=== PATIENT | female | born 1935 | race Two or more races ===

== ENCOUNTER 2021-12-26 10:31 | Outpatient (REF) | payer MEDICARE, OTHER, SELFPAY ==
[2021-12-26 11:52] LABS: MANUAL DIFF FLAG NO
[2021-12-26 12:00] LABS: Basophils Percent Auto 0.5 % (0-2); Eosinophils Absolute Auto 0.2 X10*3/uL (0.0-0.4); Eosinophils Percent Auto 2.7 % (0-4); Hematocrit 33.3 % (37.0-47.0); Hemoglobin 10.5 g/dl (12.0-16.0); Imm Gran Abs Auto 0.02 X10*3/uL (0.00-0.03); Imm Gran Pct Auto 0.3 % (0.0-0.4); Lymphocytes Absolute Auto 1.4 X10*3/uL (1.2-4.9); Lymphocytes Percent Auto 22.5 % (20-40); Mean Corpuscular HGB Conc 31.5 g/dl (31.0-35.0); Mean Corpuscular Hemoglobin 29.2 pg (27.0-33.0); Mean Corpuscular Volume 92.5 fL (80.0-98.0); Mean Platelet Volume 9.8 fL (9.4-12.3); Monocytes Absolute Auto 0.5 X10*3/uL (0.1-1.2); Monocytes Percent Auto 8.6 % (2-11); Neutrophils Absolute Auto 4.1 x10*3/uL (2.0-8.3); Neutrophils Percent Auto 65.4 % (45-73); Platelet Count 205 X10*3/uL (160-400); Red Cell Distribution Width 12.1 % (11.0-16.0); White Blood Count 6.3 X10*3/uL (4.8-10.8)
[2021-12-26 12:24] LABS: Alanine Aminotransferase 11 U/L (0-31); Albumin Level 4.1 g/dL (3.5-5.0); Alkaline Phosphatase 78 U/L (39-117); Anion Gap 11 (12-20); Aspartate Amino Transferase 19 U/L (5-31); Bilirubin Total 0.5 mg/dL (0.0-1.0); Blood Urea Nitrogen 19 mg/dL (9-16); C Reactive Protein 1.46 mg/dL (< or = 0.50); Calcium 9.7 mg/dL (8.4-10.2); Carbon Dioxide 31 mmol/L (22-29); Chloride 104 mmol/L (96-108); Estimated Glomerular Filt Rate 47; Glucose Random 96 mg/dL (60-115); Sodium 141 mmol/L (135-145); Total Protein 6.9 g/dL (6.5-8.0)
[2021-12-26 13:26] LABS: Appearance Urine CLEAR; Color Urine YELLOW; Glucose Urine UA NEG (NEG); Leukocyte Esterase Urine NEG (NEG); Nitrite Urine NEG (NEG); Specific Gravity - Urine <= 1.005 (1.005-1.025); Urine Blood NEG (NEG); Urine Ketones NEG (NEG); Urine Protein NEG (NEG-TRACE)
== END 2021-12-26 10:32 | disposition home or self-care (01) ==
LOC: HO.LAB 10:31
PROVIDERS: PCP Internal Medicine; Visit Provider Internal Medicine Rheumatology
DX: L95.8 Other vasculitis limited to the skin (principal); M19.90 Unspecified osteoarthritis, unspecified site
CPT/HCPCS: 36415; 80053; 81003; 85025; 86140; 99212

== ENCOUNTER 2022-01-11 10:42 | Outpatient (REF) | payer MEDICARE, OTHER, SELFPAY ==
[2022-01-11 11:07] LABS: MANUAL DIFF FLAG NO
[2022-01-11 11:33] LABS: Basophils Percent Auto 0.4 % (0-2); Eosinophils Absolute Auto 0.2 X10*3/uL (0.0-0.4); Eosinophils Percent Auto 2.9 % (0-4); Hemoglobin 10.4 g/dl (12.0-16.0); Imm Gran Abs Auto 0.02 X10*3/uL (0.00-0.03); Imm Gran Pct Auto 0.4 % (0.0-0.4); Mean Corpuscular HGB Conc 31.5 g/dl (31.0-35.0); Mean Corpuscular Hemoglobin 29.2 pg (27.0-33.0); Mean Corpuscular Volume 92.7 fL (80.0-98.0); Mean Platelet Volume 9.9 fL (9.4-12.3); Monocytes Absolute Auto 0.5 X10*3/uL (0.1-1.2); Monocytes Percent Auto 8.5 % (2-11); Neutrophils Absolute Auto 3.9 x10*3/uL (2.0-8.3); Neutrophils Percent Auto 69.8 % (45-73); Platelet Count 218 X10*3/uL (160-400); Red Blood Count 3.56 X10*6/uL (4.20-5.50); Red Cell Distribution Width 11.9 % (11.0-16.0); White Blood Count 5.5 X10*3/uL (4.8-10.8)
[2022-01-11 12:32] LABS: Vitamin B12 874 pg/mL (200-900)
[2022-01-11 12:34] LABS: Iron 45 mcg/dL (30-160); Percent Iron Saturation 16 % (15-50); Total Iron Binding Capacity 288 mcg/dL (228-428); Unsaturated Iron Binding 243 ug/dL
[2022-01-14 21:01] LABS: Haptoglobin 177 mg/dL (43-212)
== END 2022-01-11 10:43 | disposition home or self-care (01) ==
LOC: HO.LAB 10:42
PROVIDERS: PCP Internal Medicine; Visit Provider Internal Medicine Rheumatology
DX: D64.9 Anemia, unspecified (principal); L95.8 Other vasculitis limited to the skin
CPT/HCPCS: 36415; 82607; 83010; 83540; 85025

== ENCOUNTER 2022-09-05 16:32 | Outpatient (REF) | payer MEDICARE, OTHER, SELFPAY ==
[2022-09-05 18:49] LABS: Influenza A PCR NEGATIVE (Negative); Influenza B PCR NEGATIVE (Negative); Resp Syncy Virus RNA Qual PCR NEGATIVE (Negative); SARS COV2 PCR INHOUSE NEGATIVE (Negative)
== END 2022-09-05 16:33 | disposition home or self-care (01) ==
LOC: HO.LAB 16:32
DX: J02.9 Acute pharyngitis, unspecified (principal); Z20.822 Contact with and (suspected) exposure to COVID-19
CPT/HCPCS: 0241U

== ENCOUNTER 2024-08-01 06:56 | Emergency (ER) | payer MEDICARE, OTHER, SELFPAY ==
--- NOTE | ~2024-08-01 | CT_ITS ---
EXAMINATION: CT HEAD WITHOUT CONTRAST (STROKE PROTOCOL) CLINICAL INFORMATION: Stroke protocol. Right sided weakness. On Coumadin. COMPARISON: None available. TECHNIQUE: Contiguous axial imaging was performed from the skull base to vertex without intravenous administration of contrast. This CT examination was performed using dose optimization techniques as appropriate, variously including the following: *Automated exposure control *Adjustment of mA and/or kV according to patient size (this includes techniques or standardized protocols for targeted exams where dose is matched to indication/reason for exam; i.e. extremities or head) *Use of iterative reconstruction technique DLP: 652 mGy-cm FINDINGS: No intracranial hemorrhage, large infarction, or mass lesion is seen. Anterior left external capsule hypodensity (image 29, series 2). Diffuse, age-appropriate cortical atrophy and chronic bilateral periventricular white matter ischemic change. No extra-axial collection is appreciated. The ventricles are normal in size and configuration without evidence of hydrocephalus. Mild mucosal thickening involving the maxillary sinuses. The mastoid air cells are clear. Mild deviation of the nasal septum toward the right. Left emily bullosa. Occlusion of the left ostiomeatal unit by soft tissue density. Bilateral lens extractions. Cerumen within the right external auditory canal. CT/CT head for stroke IMPRESSION: Anterior left external capsule hypodensity which may represent age indeterminate infarct. This critical result was discussed with LETICIA Guerrero at approximately 7:18 AM on August 01, 2024. It was ascertained that the content and urgency of the report was understood at the time of direct communication. Electronically signed by: Kevin Marie MD 08/01/2024 07:19 AM EDT
--- NOTE | ~2024-08-01 | CT_ITS ---
EXAMINATION: CT angio head neck stroke CLINICAL INFORMATION: Right-sided weakness. COMPARISON: CT head 08/01/2024. TECHNIQUE: Supply Chain Vice President images were obtained. A CT angiogram of the head and neck was performed in the arterial phase after the intravenous administration of 70 mL Omnipaque 350. Pre and delayed postcontrast images of the head were also obtained. 3D images were processed on an independent workstation under concurrent supervision. Arterial stenoses are measured in accordance with NASCET criteria or similar method if applicable. This CT examination was performed using dose optimization techniques as appropriate, including one or more of the following: Automated exposure control, iterative reconstruction, and adjustment of technique factors (mA and/or kVp) according to patient size (this includes techniques or standardized protocols for targeted exams where dose is matched to indication/reason for exam). Fleischner Society criteria for the followup of incidental pulmonary nodules was implemented if appropriate. Total exam dose-length product 1518 mGy-cm FINDINGS: Head: Postcontrast images reveal no abnormal intracranial mass or enhancement. There is no intracranial mass effect or midline shift. Lateral and third ventricles are normal. No hydrocephalus. Again there is a well-defined focus of hypoattenuation at the anterior aspect of the left lentiform nucleus. Kathleen-white matter differentiation is otherwise preserved. The calvarium and skull base are intact. Mastoid air cells and middle ear cavities are well aerated. Mild paranasal sinus disease. CT angiogram neck: Scattered atheromatous calcification involves the aortic arch apex. Origins of the major aortic branches are patent. Common carotid arteries are normal. Partially calcified atheromatous plaque involves both carotid bifurcations. No stenosis of the extracranial internal carotid arteries. The cervical segments of the vertebral arteries as well as their origins are patent. CT angiogram head: Atheromatous calcification involves the cavernous segments of both internal carotid arteries. Intracranial internal carotid arteries are widely patent. Intradural vertebral artery segments and basilar artery are patent. There is occlusive thrombus within the distal M1 segment of the left middle cerebral artery. There is reconstitution of contrast filling the distal branches of the left middle cerebral artery complex. Anterior, middle, and posterior cerebral or complexes are otherwise unremarkable. Other: Soft tissues of the neck including the thyroid gland are normal. No pathologically enlarged cervical lymph nodes. No mediastinal or axillary adenopathy is visualized within the [id number] this examination. There is mild interlobular septal thickening visualized at the apices of both lungs. No acute osseous finding. CT/CT angio head neck stroke IMPRESSION: There is occlusive thrombus within the distal M1 segment of the left middle cerebral artery. There is reconstitution of contrast filling the distal branches of the left middle cerebral artery complex. Otherwise no stenosis of the cervical carotid or vertebral arteries. No intracranial large vessel occlusion. No abnormal intracranial mass or enhancement. This critical result was discussed with Jolynn Murrieta NP at 8:38 AM on 08/01/2024 and it was ascertained that the content and urgency of the report was understood at the time of direct communication. Electronically signed by: Jenaro Brooks MD 08/01/2024 08:38 AM EDT
--- NOTE | ~2024-08-01 | XR_ITS ---
EXAMINATION: XR ELBOW, RIGHT CLINICAL INFORMATION: Fall. Swelling. Decreased range of motion. COMPARISON: None available. TECHNIQUE: AP, lateral, and oblique views of the right elbow. FINDINGS: The bones appear unremarkable. No fracture or joint effusion identified. Alignment is anatomic. Joint spaces appear maintained. XR/XR elbow RT 2V IMPRESSION: No acute fracture or dislocation identified. Electronically signed by: Kevin Marie MD 08/01/2024 09:29 AM EDT
--- NOTE | 2024-08-01 07:02 | ECG_ITS ---
Test Reason : STROKE Blood Pressure : / mmHG Vent. Rate : 060 BPM Atrial Rate : 039 BPM P-R Int : 000 ms QRS Dur : 192 ms QT Int : 514 ms P-R-T Axes : 000 -68 085 degrees QTc Int : 514 ms Ventricular-paced rhythm Abnormal ECG No previous ECGs available Referred By: Rainer Grajeda Electronically Signed By:JACKIE CARDOSO MD
[2024-08-01 07:04] VITALS: BMI 22.5
--- NOTE | 2024-08-01 07:07 | ED.NEUROSD ---
HPI - Neuro Symptoms/Deficit General Chief Complaint: Stroke Stated Complaint: STROKE ALERT Time Seen by Provider: 08/01/24 07:03 Source: family and EMS Mode of arrival: EMS Limitations: altered mental status History of Present Illness HPI Narrative: Patient is an 88-year-old female past medical history of hypertension, atrial fibrillation on warfarin presents emergency department via EMS for evaluation. Last known well time 22:30 last night saw her before going to bed. She was found on the bathroom floor approximately 04:00 she was not speaking, not following commands, noted to have a right sided facial droop, right-sided weakness. At baseline she is alert and oriented x4, very active, engaging in regular exercise. Related Data Home Medications ?Medication ?Instructions ?Recorded ?Confirmed amoxicillin 500 mg capsule 1,000 mg PO Q12H PRN dental 12/26/21 09/05/22 appointments carboxymethylcellulose sodium 1 % 1 drp ophthalmic (eye) BID 12/26/21 09/05/22 eye gel in a dropperette (Refresh Celluvisc) cetirizine 10 mg tablet (All Day 10 mg PO DAILY 12/26/21 12/26/21 Allergy (cetirizine)) cimetidine 400 mg tablet 400 mg PO BID 12/26/21 09/05/22 cyclosporine 0.05 % eye drops in a 1 drp ophthalmic (eye) Q12H 12/26/21 09/05/22 dropperette (Restasis) fluticasone propionate 44 1 puff inhalation BID 12/26/21 09/05/22 mcg/actuation HFA aerosol inhaler (Flovent HFA) furosemide 20 mg tablet 20 mg PO DAILY 12/26/21 09/05/22 loratadine 10 mg tablet (Allergy 10 mg PO DAILY 12/26/21 09/05/22 Relief (loratadine)) losartan 25 mg tablet 25 mg PO DAILY 12/26/21 09/05/22 metoprolol succinate 100 mg 100 mg PO DAILY 12/26/21 09/05/22 tablet,extended release 24 hr simvastatin 10 mg tablet 10 mg PO DAILY 12/26/21 09/05/22 tafluprost (PF) 0.0015 % eye drops 1 drp ophthalmic (eye) DAILY 12/26/21 09/05/22 in a dropperette (Zioptan (PF)) triamcinolone acetonide 0.1 % 1 appl topical TID PRN 12/26/21 09/05/22 topical cream vitamin B complex 1 tab PO DAILY 12/26/21 09/05/22 warfarin 2.5 mg tablet 2.5 mg PO DAILY 12/26/21 09/05/22 Allergies Allergy/AdvReac Type Severity Reaction Status Date / Time dorzolamide Allergy Severe visual Verified 08/01/24 07:06 disturbance timolol Allergy Severe visual Verified 08/01/24 07:06 disturbance flecainide Allergy Intermediate itchy Verified 08/01/24 07:06 sotalol Allergy Intermediate hives Verified 08/01/24 07:06 cetirizine Allergy Hives Verified 08/01/24 07:49 Review of Systems Review of Systems: Yes all other systems are reviewed and are negative [facility] Past Medical History Attestation statement: The following information was validated with the patient. Source: old records reviewed Medical History Viral upper respiratory tract infection with cough Osteoarthritis of knee Urticarial vasculitis Social History Social History Household Members: Spouse Housing: House Are you a primary home care consultant to a significant other at home: No Do you presently have visiting nurse or other home services: No Alcohol intake: current Alcohol type: hard liquor Patient Tobacco Use Status: Never used Tobacco e-Cigarette/Vaping Use: Never Used Advance Directives: Yes Advance Directives Information Provided: Yes Advance Directives on File: No Do you have a plan to hurt others: No Plan service: Yes Physical Exam Vital Signs: Vital Signs: Last Vital Signs Temp 97.7 F 08/01/24 07:51 Pulse 60 08/01/24 07:51 Resp 16 08/01/24 07:51 BP 129/53 L 08/01/24 07:51 Pulse Ox 98 08/01/24 07:51 O2 Del Method Room Air 08/01/24 07:51 BMI result Body Mass Index 22.5 Appearance: Alert.? Disoriented, does not follow commands Eyes: Pupils equal, round and reactive to light.??? Neck: Normal inspection.? Neck supple.?? CVS: Heart sounds normal. Normal heart rate and rhythm.? Pulses normal.?? Respiratory: No respiratory distress.? Lung sounds clear to auscultation bilaterally?? Abdomen: Soft and non-tender. Normoactive bowel sounds. Skin: Skin warm and dry.? Normal skin color.? ? Extremities: No lower extremity edema.? No calf ttp? Neuro: Difficulty assessing motor function of extremities given her inability to follow commands. Right arm is held with elbow flexed a crossed chest, no effort against gravity, able to raise left arm with normal effort against gravity, though difficulty to assess strength. Aphasic. Course Reevaluation(s) Reevaluation #1: [facility] - Dr. Galvan - Peter external capsule, some hypodensity - ischemic change or infarct uncertain age NIH stroke score 16, though difficult to thoroughly assess, not following commands, uncertain waiting for visual, limb ataxia, sensory, and extinction. INR 1.4 Consulting Neurology Time: 07:16 Reevaluation #2: Consulted Neurology - Dr. Albert; reviewed case and CT findings. Patient would not be a candidate for TNK, pending CTA results, if there is a large vessel disease plan to discuss case with [facility]. CBC is without leukocytosis, has a mild normocytic anemia that does not meet transfusion criteria, no thrombocytopenia. Time: 07:58 Reevaluation #3: Received call from [facility] regarding CTA head and neck; occlusive thrombus to left distal M1 of the middle cerebral artery with reconstitution of contrast filling the distal branches of the left middle cerebral artery complex. I spoke with [facility] interventional Neurology; Dr Nuñez, patient has been accepted for transfer to their emergency department for thrombectomy. Patient family made aware plan of care and are agreeable Time: 08:36 Medications Administered Discontinued Medications Generic Name Dose Route Start Last Admin Trade Name Freq PRN Reason Stop Dose Admin Iohexol 70 ml 08/01/24 07:24 08/01/24 07:25 Iohexol 350 Mg/Ml 75 Ml Infus..Btl IV 08/01/24 07:25 70 ml ONCE ONE Administration Medical Decision Making Medical Decision Making MDM Narrative: Patient is an 88-year-old female past medical history of atrial fibrillation on warfarin, cardiac pacemaker, asthma, glaucoma, arthritis presenting to the emergency department as a stroke alert via EMS. NIH stroke score 16, though difficult to thoroughly assess, not following commands, uncertain waiting for visual, limb ataxia, sensory, and extinction. On review of pharmacy records she obtained a prescription for Augmentin on 07/21/2024, unclear as to why this was prescribed, and son unaware, patient can not elaborate Differential Diagnosis Differential Diagnoses: The differential diagnosis associated with the presentation includes (ICH, SDH, cerebral infarct) Admission/Observation Consideration of admission/observation: Escalation of care including admission/observation considered Consult Healthcare Provider Management of the patient was discussed with: Check Services Clerk (See course narrative) Lab Data MDM Lab Attestation statement: I reviewed the patient's lab results. 08/01/24 08:11 08/01/24 08:11 Labs: Lab Results 08/01/24 Range/Units 08:11 WBC 7.8 (4.8-10.8) X10*3/uL RBC 3.37 L (4.20-5.50) X10*6/uL Hgb 10.0 L (12.0-16.0) g/dl Hct 30.4 L (37.0-47.0) % MCV 90.2 (80.0-98.0) fL MCH 29.7 (27.0-33.0) pg MCHC 32.9 (31.0-35.0) g/dl RDW 12.3 (11.0-16.0) % Plt Count 187 (160-400) X10*3/uL MPV 9.5 (9.4-12.3) fL Immature Gran % (Auto) 0.6 H (0.0-0.4) % Neut % (Auto) 84.7 H (45-73) % Lymph % (Auto) 8.6 L (20-40) % [place] % (Auto) 5.5 (2-11) % Eos % (Auto) 0.5 (0-4) % Baso % (Auto) 0.1 (0-2) % Lymph # (Auto) 0.7 L (1.2-4.9) X10*3/uL [place] # (Auto) 0.4 (0.1-1.2) X10*3/uL Eos # (Auto) 0.0 (0.0-0.4) X10*3/uL Baso # (Auto) 0.0 (0.0-0.2) X10*3/uL Abs Immat Gran (auto) 0.05 H (0.00-0.03) X10*3/uL Absolute Neuts (auto) 6.6 (2.0-8.3) x10*3/uL Absolute Nucleated RBC 0.000 (0.0-0.012) X10*3/uL Nucleated RBC % (auto) 0.0 (0.0-0.2) /100WBC Independent Interpretation I performed an independent interpretation of an: CT Scan (No ICH) Radiology Impression Discussion of test interpretation with radiology: I have reviewed the radiologist's reading. Radiologist Impression: CT/CT head for stroke IMPRESSION: Anterior left external capsule hypodensity which may represent age indeterminate infarct. This critical result was discussed with LETICIA Guerrero at approximately 7:18 AM on August 01, 2024. It was ascertained that the content and urgency of the report was understood at the time of direct communication. CT/CT angio head neck stroke IMPRESSION: There is occlusive thrombus within the distal M1 segment of the left middle cerebral artery. There is reconstitution of contrast filling the distal branches of the left middle cerebral artery complex. Otherwise no stenosis of the cervical carotid or vertebral arteries. No intracranial large vessel occlusion. No abnormal intracranial mass or enhancement. Independent Historian Clinical information obtained from an independent historian. History obtained from or confirmed by: EMS and Other (Patient's son and ) NIH Stroke Scale Internal: Initial- Upon Arrival Level of Consciousness: Alert Level of Consciousness Questions: Answers neither question correctly Level of Consciousness Commands: Performs neither task correctly Best Gaze: Normal Visual: No visual loss Facial Palsy: Partial paralysis (right facial droop) Motor Arm (Right): No effort against gravity Motor Arm (Left): No drift Motor Leg (Right): Some effort against gravity Motor Leg (Left): No drift Limb Ataxia: Absent Sensory: Normal Best Language: Mute, global aphasia Dysarthia: Severe dysarthria Extinction and Inattention: No abnormality Score: 16 Critical Care Time Critical Care Time Critical Care Time: Yes Total Critical Care Time: 65 Attestation: I personally attest to this critical care time spent taking care of the patient exclusive of all other billable procedures was approximately 65 minutes including initial evaluation of patient, ordering tests, CT interpretation, medical consultation, documentation, re-evaluation. 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 Patient Disposition: [facility] Transfer Details: [facility] Prescriptions: No Action Flovent HFA 44 mcg/actuation HFA aerosol inhaler 1 puff inhalation BID Rx Instructions: administer with spacer furosemide 20 mg tablet 20 mg PO DAILY losartan 25 mg tablet 25 mg PO DAILY metoprolol succinate 100 mg tablet extended release 24 hr 100 mg PO DAILY cyclosporine [Restasis] 0.05 % dropperette 1 drp ophthalmic (eye) Q12H simvastatin 10 mg tablet 10 mg PO DAILY warfarin 2.5 mg tablet 2.5 mg PO DAILY Zioptan (PF) 0.0015 % dropperette 1 drp ophthalmic (eye) DAILY Rx Instructions: administer at bedtime carboxymethylcellulose sodium [Refresh Celluvisc] 1 % dropperette,gel 1 drp ophthalmic (eye) BID vitamin B complex Tablet 1 tab PO DAILY triamcinolone acetonide 0.1 % cream 1 appl topical TID PRN cetirizine [All Day Allergy (cetirizine)] 10 mg tablet 10 mg PO DAILY cimetidine 400 mg tablet 400 mg PO BID Rx Instructions: administer with meals amoxicillin 500 mg capsule 1,000 mg PO Q12H PRN (Reason: dental appointments) loratadine [Allergy Relief (loratadine)] 10 mg tablet 10 mg PO DAILY Print Language: Yoruba
--- NOTE | 2024-08-01 07:09 | PC.NURSE ---
Son in [place] stated that pt's baseline is fully functional, attends exercise classes few times a week. On coumadin. Wasn't present for fall and unclear of circumstances causing fall. [phone] Jim De Dios
[2024-08-01 07:12] VITALS: BP 135/56; PULSE 64; RESP 16; O2SAT 98
[2024-08-01] MEDS: iohexoL 350 MG/ML 75 ML INFUS..BTL 70 ML IV (07:25)
[2024-08-01 07:51] VITALS: BP 129/53; PULSE 60; RESP 16; TEMP 36.5; O2SAT 98
[2024-08-01 08:15] LABS: MANUAL DIFF FLAG NO
[2024-08-01 08:17] LABS: Basophils Percent Auto 0.1 % (0-2); Eosinophils Percent Auto 0.5 % (0-4); Hematocrit 30.4 % (37.0-47.0); Imm Gran Abs Auto 0.05 X10*3/uL (0.00-0.03); Imm Gran Pct Auto 0.6 % (0.0-0.4); Lymphocytes Absolute Auto 0.7 X10*3/uL (1.2-4.9); Lymphocytes Percent Auto 8.6 % (20-40); Mean Corpuscular HGB Conc 32.9 g/dl (31.0-35.0); Mean Corpuscular Hemoglobin 29.7 pg (27.0-33.0); Mean Corpuscular Volume 90.2 fL (80.0-98.0); Mean Platelet Volume 9.5 fL (9.4-12.3); Monocytes Absolute Auto 0.4 X10*3/uL (0.1-1.2); Monocytes Percent Auto 5.5 % (2-11); Neutrophils Absolute Auto 6.6 x10*3/uL (2.0-8.3); Neutrophils Percent Auto 84.7 % (45-73); Platelet Count 187 X10*3/uL (160-400); Red Blood Count 3.37 X10*6/uL (4.20-5.50); Red Cell Distribution Width 12.3 % (11.0-16.0); White Blood Count 7.8 X10*3/uL (4.8-10.8)
[2024-08-01 08:47] LABS: INTERNATIONAL NORM RATIO 1.4 (0.9-1.1); Prothrombin Time 16.5 SEC (10.9-12.4)
[2024-08-01 08:49] LABS: Partial Thromboplastin Time 28.2 SEC (26.0-36.8)
--- NOTE | 2024-08-01 08:49 | PC.NURSE ---
Addendum entered by Valarie Frero RN 08/01/24 08:53: patient unable to participate in swallow screening due to current mentation Original Note: patient presented to the ED via ems, patient found by on the floor in the bathroom, he was able to get her back into bed but noticed she was not speaking, around 0400. patient brought in by EMS patient has right sided facial droop, not speaking, not following simple commands, patient pupils equal and reactive, patient tracking staff movement with eyes. patient right arm retracted in towards body. patient responds to painful stimuli by wincing and attempting to pull hand away. patient has 18# in the left AC. patient states LKW was 2230 night prior when they went to bed, normal baseline is alert and oriented x4, ambulatory. GCS of 9
[2024-08-01 08:51] LABS: Stroke Lab Use COMPLETE
[2024-08-01 08:55] VITALS: BP 133/54; PULSE 60; RESP 12; TEMP 36.4; O2SAT 97
--- NOTE | 2024-08-01 09:05 | PC.NURSE ---
patient right arm noted to have red pressure like wound from fall and possibly laying on right side, patient has bruising to right upper arm. ED provider aware, xray order obtained
--- NOTE | 2024-08-01 09:21 | PC.NURSE ---
report given to yon clayton
--- NOTE | 2024-08-01 09:27 | PC.NURSE ---
report given to [facility] ED nurse Jewels
[2024-08-01 09:32] LABS: Anion Gap 13 (12-20); Blood Urea Nitrogen 20 mg/dL (9-16); Calcium 9.4 mg/dL (8.4-10.2); Carbon Dioxide 28 mmol/L (22-29); Chloride 102 mmol/L (96-108); Cholesterol 156 mg/dL (<200); Creatinine Clr Calc Pharmacy 42.8; Estimated Glomerular Filt Rate 59; Glucose Random 105 mg/dL (60-115); HDL Cholesterol 59 mg/dL (>40); LDL Cholesterol Calculated 84 mg/dL (<100); Potassium 4.2 mmol/L (3.3-5.1); Sodium 139 mmol/L (135-145); Triglycerides 67 mg/dL (<150)
[2024-08-01 09:40] LABS: Influenza A PCR NEGATIVE (Negative); Influenza B PCR NEGATIVE (Negative); Resp Syncy Virus RNA Qual PCR NEGATIVE (Negative); SARS COV2 PCR INHOUSE NEGATIVE (Negative)
[2024-08-01 09:50] LABS: Troponin-I High Sensitivity < 2.7 ng/L (<3.5-17.0)
[2024-08-01 12:23] LABS: Glucose, Whole Blood 94 mg/dL (60-115)
[2024-08-10 10:00] LABS: Prothrombin Time Whole Bld POC 16.9 sec (11.1-13.5); ~PT, ~INR - Anti Coag Clinic 1.4 (0.9-1.1)
== END 2024-08-01 09:27 | disposition short-term general hospital (02) ==
PROVIDERS: Internal Medicine; Nurse Practitioner Family; Emergency Provider Emergency Medicine
DX: I63.89 Other cerebral infarction (principal); R53.1 Weakness; I48.91 Unspecified atrial fibrillation; Z03.818 Encounter for observation for suspected exposure to other biological agents ruled out; Z79.01 Long term (current) use of anticoagulants; Z79.899 Other long term (current) drug therapy
CPT/HCPCS: 0241U; 36415; 70450; 70496; 70498; 73070; 80048; 80061; 82947; 84484; 85025; 85610; 85730; 93005; 99285; Q9967

== ENCOUNTER → 2024-08-01 07:02 | Outpatient (BNV) | payer MEDICARE, OTHER, SELFPAY | PROVIDERS: Emergency Provider Emergency Medicine; Visit Provider Internal Medicine Cardiovascular Disease | DX: R94.31 Abnormal electrocardiogram [ECG] [EKG] (principal) | CPT/HCPCS: 93010 ==